=== PATIENT | female | born 1990 | race Caucasian/White ===

== ENCOUNTER 2025-03-14 19:34 | Emergency (ER) | payer OTHER ==
[2025-03-14 19:43] VITALS: BP 113/64; PULSE 84; RESP 20; TEMP 98.1; BMI 29.2
[2025-03-14] MEDS ORDERED: MECLIZINE HCL 25 MG TABLET (FP) ONE (20:17)
[2025-03-14] MEDS: MECLIZINE HCL 25 MG TABLET (FP) PO ONE (20:27)
== END 2025-03-14 22:01 | disposition home or self-care (01) ==
LOC: JER 19:34
DX: R42 Dizziness and giddiness (principal); R11.2 Nausea with vomiting, unspecified
CPT/HCPCS: 99283-25